=== PATIENT | female | born 2005 | race Caucasian/White ===

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

== ENCOUNTER 2025-05-17 15:29 | Outpatient (CLI) | payer OTHER, SELFPAY ==
--- OUTSIDE RECORDS SUMMARY | 2025-05-17 15:35 | XMS_ITS | Clinical Summary ---
Author Organization [facility] Address [address] [place] [address] Care Team Providers Care Home Health Rn Name Role Phone Hood Michael MD Primary Care Provider [phone] Source Comments [facility],non-owned Affiliates and Associated Physician Practices is amultiple site organization consisting of ambulatory clinics and hospital sitesin [place], [place], [place] and [place]. This disclosure is being madepursuant to the Care Everywhere program and may not contain all information available regarding this patient. Last updated 18.[facility] Allergies No known active allergies Medications * Be aware that medications may not be up to date on this document. Alwaysverify current medications with the patient. cetirizine (ZYRTEC ALLERGY) 10 MG gel capsuleIndicatio ns:as needed Take 10 mg by mouth once daily Reasons: as needed Active Active Problems Problem Noted Date Diagnosed Date Scoliosis (and kyphoscoliosis), idiopathic 05/18 Overview (07/12/2021): IMO 2020 Immunizations Immunization Administration Dates Next Due INFLUENZA VACCINE, QUADR. (F LUZONE; FLULAVAL; FLUARIX; AFLURIA QUADRIVALENT; 6MO+), 0.5 ML (IIV4) 08/09/2020,08/15/2018 Social History Tobacco Use Types Packs/Day Years Used Date Smoking Tobacco: Never Smokeless Tobacco: Never Comments:non smoking househo ld Comments No Sex and Gender Information Value Date Recorded Sex Assigned at Not on file Legal Sex Female 5:45 AM [employer] Gender Identity Not on file Sexual Orientation Not on file Last Filed Vital Signs Vital Sign Reading Time Taken Comments Blood Pressure 118/72 11/30/2020 12:46 PM [employer] Pulse 97 11/30/2020 12:46 PM [employer] Temperature 36.8 C (98.2 F) 11/30/2020 12:46 PM [employer] Respiratory Rate 16 11/30/2020 12:46 PM [employer]NAGER [employer] Oxygen Saturation 99% 11/30/2020 12:46 PM [employer]NAGER [employer] Inhaled Oxygen Concentration - - Weight 61.2 kg (135 lb) 11/30/2020 12:46 PM [employer]NA[employer] Height 167.6 cm (5' 6) 11/30/2020 12:46 PM [employer] Body Mass Index 21.79 11/30/2020 12:46 PM [employer]NAGER [employer] Body Mass Index Percentile 70.38% 11/30/2020 12: 46 PM [employer]NA[employer] Growth Chart: [facility] (Girls, 2- 20 Years) Plan of Treatment Health Maintenance Due Date Last Done Comments HIV SCREENING 2020 HPV VACCINE (1 - 3-dose series) 2020 CHLAMYDIA/GONORRHEA SCREENING 2021 MENINGOCOCCAL (Group B) VACCINE SHARED DECISION-MAKING (1 of 2 - Standard) 2021 HEPATITIS C SCREENING 10/26/2023 COVID-19 VACCINE (1 - 2023- season) 2024 DEPRESSION SCREENING 10/12/2024 DTAP/TDAP/TD VACCINES (1 - Tdap) 2024 HEPATITIS B VACCINE (1 of 3 - 19+ 3-dose series) 2024 INFLUENZA VACCINE (#1) 2025 , 08/09/2020, 09/29/2019, Additional history exists ZOSTER VACCINE (1 of 2) 2055 HIB VACCINE Aged Out No longer eligi ble based on patient's age to complete this topic MENINGOCOCCAL GROUPS A/C/Y/W VACCINE Aged Out No longer eligible based on patient's age to complete this topic PNEUMOCOCCAL VACCINE Aged Out No long er eligible based on patient's age to complete this topic Insurance [employer] Care Teams Home Health Rn Relationship Specialty Start Date End Date Hood Michael MD [address] [place] [id number] PCP - General Pediatrics 05/18/17
--- OUTSIDE RECORDS SUMMARY | 2025-05-17 15:35 | XMS_ITS | Clinical Summary ---
Author Organization [facility] Address [address] [place] [id number] Phone Care Team Providers Care Station Helper Name Role Phone Saad Gutierrez MD Primary Care Provider [phone] Allergies No known active allergies Medications omeprazole (PriLOSEC) 20 mg Capsule, Delayed Release(E.C.)Ind ications:Gastrit is, presence of bleeding unspecified, unspecified chronicity, unspecified gastritis type Take 1 Capsule (20 mg) by mouth daily. 30 Capsule 3 09/15/2022 Active Active Problems No known active problems Family History Medical History Relation Name Comments No Known Problems Father No Known Problems Mother No Known Problems Sister 1 No Known Problems Sister 2 Relation Name Status Comments Father Alive Mother Alive Sister 1 Sister 2 Alive Social History Tobacco Use Types Packs/Day Years Used Date Smoking Tobacco: Never Smokeless Tobacco: Never Tobacco Cessation:Counseling Given: Not Answered Alcohol Use Standard Drinks/Week Comments Never 0 (1 standard drink = 0.6 oz pur e alcohol) Comments Unknown Sex and Gender Information Value Date Recorded Sex Assigned at Not on file Legal Sex Female 10:31 AM [employer] Gender Identity Not on file Sexual Orientation Not on file Last Filed Vital Signs Vital Sign Reading Time Taken Comments Blood Pressure 104/66 09/11/2022 1:57 PM [employer] Pulse 80 09/11/2022 1:57 PM [employer] Temperature 36.8 C (98.2 F) 09/11/2022 1:57 PM [employer] Respiratory Rate 18 09/11/2022 1:57 PM [employer] Oxygen Saturation 99% 09/11/2022 1:57 PM [employer] Inhaled Oxygen Concentration - - Weight 59.2 kg (130 lb 9.6 oz) 12/11/2022 8:47 A M [employer] Height 166 cm (5' 5.35) 12/11/2022 8:47 AM [employer] Body Mass Index 21.5 12/11/2022 8:47 AM [employer] Body Mass Index Percentile 56.95% 12/11/2022 8:4 7 AM [employer] Growth Chart: [facility] (Girls, 2- 20 Years) Plan of Treatment Health Maintenance Due Date Last Done Comments CHLAMYDIA SCREENING (ANNUAL) 11-24 YEARS 2016 HPV VACCINES (1 - 3-dose series) 2020 DTAP/TDAP/TD VACCINES (1 - Tdap) 2024 HEPATITIS B VACCINES (1 of 3 - 19+ 3-dose series) 2024 INFLUENZA VACCINE (#1) 2025 08/09/2020, 2017 Insurance Apiary Advance Directives For more information, please contact: [phone] * Full Code (Latest Code Status on File) Date Activated Date Inactivated Comments 09/11/2022 11:57 AM 09/11/2022 4:37 PM Care Teams Station Helper Relationship Specialty Start Date End Date Saad Gutierrez MD [address] [id number] PCP - General Pediatrics 08/20/22
[2025-05-22 11:08] LABS: Estradiol, Sensitive 31.9 pg/mL (.)
== END 2025-05-17 15:30 | disposition home or self-care (01) ==
LOC: ANHLAB 15:31
PROVIDERS: Visit Provider Nurse Practitioner Obstetrics & Gynecology
DX: N92.6 Irregular menstruation, unspecified (principal)
CPT/HCPCS: 82670; 84146